=== PATIENT | female | born 1990 | race American Indian/Alaskan Native ===

== ENCOUNTER 2016-11-27 10:32 | Emergency (ER) | payer OTHER ==
[2016-11-27 10:41] VITALS: BP 116/62
--- NOTE | 2016-11-27 11:46 | XRay Report ---
LEFT FOOT, 3 views: History: Left foot pain. Previous surgical changes are noted in the distal fibula and midfoot, correlate with history. The bony architecture is intact. Bony alignment is normal. No soft tissue abnormalities are seen. The joint spaces appear preserved. IMPRESSION: Surgical changes. No acute process appreciated.
--- NOTE | 2016-11-27 12:14 | Emergency Department Report ---
ED Extremity Problem HPI - General Chief complaint: Extremity Injury, Lower Stated complaint: FOOT PAIN Time Seen by Provider: 11/27/16 11:03 Source: patient Mode of arrival: Ambulatory Limitations: No Limitations - History of Present Illness Initial comments: PT c/o L foot pain. PT denies injury but states she had a broken ankle/ foot and she has had L foot surgery and she has hardware in place. PT states since her surgery, she has had intermittent swelling and apin. PT states she fell from third story [employer] in 2013. PT states since she had surgery to L foot and ankle, she has not been able to move her toes. PT states last week, she hit her toe and it bent backwards. PT states it felt good and then it started to hurt worse. PT states she does not follow up with orthopedics and she did not do physical therapy after surgery. PT denies allergies to medication. Pt works as house keeper. MD Complaint: extremity pain Onset/Timin -: week(s) Location: left, lower extremity History of Same: Yes Severity scale (0 -10): 8 Quality: aching, sharp, constant Consistency: constant Improves with: rest Worsens with: weight bearing, walking Associated Symptoms: denies other symptoms - Related Data Previous Rx's Medication Instructions Recorded Last Taken Type Ibuprofen [Motrin] 600 mg PO Q8H PRN #15 tablet 11/27/16 Unknown Rx traMADol [Ultram] 50 mg PO Q6HR PRN #12 tablet 11/27/16 Unknown Rx ED Review of Systems ROS: Stated complaint: FOOT PAIN Other details as noted in HPI Comment: All other systems reviewed and negative Constitutional: denies: fever Musculoskeletal: as per HPI Skin: denies: rash, lesions, change in color Neurological: denies: numbness, paresthesias, abnormal gait ED Past Medical Hx - Past Medical History Previous Medical History?: No - Surgical History Past Surgical History?: Yes Additional Surgical History: left foot surgery - Social History Smoking Status: Never Smoker Substance Use Type: None - Medications Home Medications: Home Medications Medication Instructions Recorded Confirmed Last Taken Type Ibuprofen [Motrin] 600 mg PO Q8H PRN #15 tablet 11/27/16 Unknown Rx traMADol [Ultram] 50 mg PO Q6HR PRN #12 tablet 11/27/16 Unknown Rx ED Physical Exam - General Limitations: No Limitations General appearance: alert, in no apparent distress - Head Head exam: Present: atraumatic, normocephalic, normal inspection - Eye Eye exam: Present: normal appearance, EOMI. Absent: conjunctival injection - ENT ENT exam: Present: normal exam, normal external ear exam - Neck Neck exam: Present: normal inspection, full ROM - Respiratory Respiratory exam: Absent: respiratory distress, chest wall tenderness, accessory muscle use - Cardiovascular Cardiovascular Exam: Present: regular rate, normal rhythm - Extremities Exam Extremities exam: Present: normal capillary refill. Absent: pedal edema, joint swelling, calf tenderness - Expanded Lower Extremity Exam Left Lower Leg exam: Present: normal inspection. Absent: tenderness, swelling, Frances 's sign Ankle exam: Absent: full ROM, tenderness, abrasion (scar to lateral left ankle ) , deformity Foot/Toe exam: Present: tenderness (to mid foot ). Absent: full ROM, swelling, abrasion (scar to L mid foot doral), deformity, erythema, calcaneal tenderness, tenderness at base of 5th metatarsal Neuro vascular tendon exam: Present: no vascular compromise. Absent: pulse deficit, abnormal cap refill Gait: Positive: observed and normal - Back Exam Back exam: Present: normal inspection, full ROM - Neurological Exam Neurological exam: Present: alert, oriented X3 - Psychiatric Psychiatric exam: Present: normal affect, normal mood - Skin Skin exam: Present: warm, dry, intact ED Course Vital Signs 11/27/16 10:39 Temperature 97.8 F Pulse Rate 56 L Blood Pressure 116/62 O2 Sat by Pulse 100 Oximetry - Reevaluation(s) Reevaluation #1: 11/27/16 12:15 PT aware of XR results. PT offered crutches but declined. PT aware she will need to follow up with Ortho. - Pulse Oximetry Interpretation Digit-Finger Initial Pulse Oximetry Readin Actions Taken: none ED Medical Decision Making - Radiology Data Radiology results: report reviewed L foot- hardware in place, nap - Differential Diagnosis hardware malfunction, stress fracture, Critical Care Time: No Critical care attestation.: If time is entered above; I have spent that time in minutes in the direct care of this critically ill patient, excluding procedure time. ED Disposition Clinical Impression: Left foot pain Disposition: DISCHARGED TO HOME OR SELFCARE Is pt being admited?: No Does the pt Need Aspirin: No Condition: Stable Instructions: Foot Sprain (ED), RICE Therapy (ED) Additional Instructions: No driving or ETOH after taking Ultram Prescriptions: Ibuprofen [Motrin] 600 mg PO Q8H PRN #15 tablet PRN Reason: Pain traMADol [Ultram] 50 mg PO Q6HR PRN #12 tablet PRN Reason: Pain Referrals: [facility] [Outside] - 3-5 Days [facility] [Outside] - 3-5 Days CHUY HURLEY JR, MD [Staff Physician] - 3-5 Days [facility] [Primary Care Provider] - 3-5 Days ZACKARY PRETTY MD [Staff Physician] - 3-5 Days Forms: Work/School Release Form(ED) Time of Disposition: 12:21
== END 2016-11-27 16:00 | disposition home or self-care (01) ==
LOC: ED 10:32
DX: M79.672 Pain in left foot (principal); Z98.890 Other specified postprocedural states